=== PATIENT | male | born 2005 | race African-American/Black ===

== ENCOUNTER 2024-01-03 16:18 | Emergency (ER) | payer OTHER ==
[2024-01-03 17:06] VITALS: RESP 18; BMI 20.9
[2024-01-03] MEDS ORDERED: ALBUTEROL SO4 2.5/IPRATROPIUM 0.5 INH SOL 3 ML VIAL.NEB. NEB ONE (18:49)
[2024-01-03] MEDS: ALBUTEROL SO4 2.5/IPRATROPIUM 0.5 INH SOL 3 ML VIAL.NEB. NEB SCH (18:54)
[2024-01-03 20:21] LABS: BASO % 0.3 % (0-2.0); EOS % 0.6 % (0-4.5); HEMATOCRIT 45.4 % (35.4-49); HEMOGLOBIN 14.8 GM/dL (11.7-16.9); LYMPH % 36.5 % (8-40); MCH 24.1 pg (25.7-33.7); MCHC 32.7 g/dl (32.0-35.9); MEAN CELL VOLUME 73.6 fl (80-96); MEAN PLT VOLUME 8.3 fl (7.5-11.1); MONO % 5.1 % (3.8-10.2); NEUT % 57.5 % (42.8-82.8); PLATELET COUNT 234 10^3/uL (134-434); RBC 6.16 M/mm3 (4.00-5.60); RDW 14.3 % (11.9-15.9); WHITE BLOOD COUNT 5.3 K/mm3 (4.0-10.0)
[2024-01-03 20:40] LABS: POTASSIUM 3.9 mmol/L (3.5-5.1)
[2024-01-03 20:43] LABS: ALBUMIN 4.1 g/dl (3.4-5.0); BLOOD UREA NITROGEN 15.6 mg/dL (7-18); CALCIUM 9.6 mg/dL (8.5-10.1)
[2024-01-03 20:48] LABS: BILIRUBIN,TOTAL 0.4 mg/dL (0.2-1); TOT PROT 7.6 g/dl (6.4-8.2)
[2024-01-03 23:10] LABS: COCAINE, UR NEGATIVE (NEGATIVE); METHADONE, UR NEGATIVE (NEGATIVE); OPIATES, URI NEGATIVE (NEGATIVE); URINE AMPHETAMINES NEGATIVE (NEGATIVE)
[2024-01-03 23:11] LABS: PHENCYCLIDINE,URINE NEGATIVE (NEGATIVE); URINE BARBITURATES NEGATIVE (NEGATIVE)
[2024-01-03 23:19] LABS: URINE BENZODIAZEPINES NEGATIVE (NEGATIVE)
[2024-01-04] MEDS ORDERED: LORazepam 1 MG TABLET ONE (04:49)
[2024-01-04] MEDS: LORazepam 2 MG TABLET PO ONE (05:00)
[2024-01-04 11:21] VITALS: BP 111/43; PULSE 61; TEMP 97.9
[2024-01-04] MEDS ORDERED: ALBUTEROL SO4 HFA INHALER IH ONE (13:42)
[2024-01-04] MEDS: ALBUTEROL SO4 HFA INHALER IH ONE (13:43)
== END 2024-01-04 13:55 | disposition home or self-care (01) ==
LOC: JER 16:18
PROC: 3E0F7GC Introduction of Other Therapeutic Substance into Respiratory Tract, Via Natural or Artificial Opening (ICD-10-PCS; principal; 2024-01-03)
DX: J45.909 Unspecified asthma, uncomplicated (principal); R07.89 Other chest pain; R06.02 Shortness of breath; Z20.822 Contact with and (suspected) exposure to COVID-19
CPT/HCPCS: 0241U-QW; 36415; 71045-TC-FY; 80053; 80307; 84484; 85025; 93005; 93010; 99285-25